=== PATIENT | female | born 1995 | race Caucasian/White ===

== ENCOUNTER 2021-09-12 18:05 | Inpatient (IN) | payer OTHER ==
[~2021-09-12] VITALS: Ht 170.2 cm; Wt 54.9 kg
[2021-09-12 17:35] VITALS: BP 117/75
[2021-09-12] MEDS ORDERED: ONDANSETRON PF 4 MG/2 ML VIAL. IVP PRN (18:45)
[2021-09-12 19:00] VITALS: BP 120/72
[2021-09-12] MEDS ORDERED: LURA20TA PO (19:29)
[2021-09-12] MEDS: fentaNYL PF VIAL 100 MCG/2 ML VIAL IVP PRN (19:52)
[2021-09-12] MEDS: IV DEXTROSE 5 %-0.45 % NACL 1,000 ML IV SCH (21:01)
[2021-09-12 22:51] VITALS: BP 117/64
[2021-09-13] VITALS (11 sets, daily range): BP systolic 100–121; BP diastolic 58–72
[2021-09-13] MEDS: fentaNYL PF VIAL 100 MCG/2 ML VIAL IVP PRN ×6 (03:07→23:43)
[2021-09-13] MEDS: IV DEXTROSE 5 %-0.45 % NACL 1,000 ML IV SCH ×2 (05:00→15:00)
[2021-09-13] MEDS ORDERED: CIPROFLOXACIN 400MG PREMIX 200 ML IV SCH (05:00)
[2021-09-13 05:28] LABS: BASO % 0 % (0-3); EOS # 0.1 x10^3/uL (0.0-0.7); EOS % 2 % (0-3); HEMATOCRIT 32.8 % (36.0-47.0); HEMOGLOBIN 10.1 g/dL (12.0-15.5); LYMPH % 36 % (24-48); MEAN CORPUSCULAR HEMOGLOBIN 24 pg (25-35); MEAN CORPUSCULAR HGB CONC 31 g/dL (31-37); MEAN CORPUSCULAR VOLUME 77 fL (79-100); MONO # 0.6 x10^3/uL (0.0-1.1); MONO % 11 % (0-9); NEUT # 2.7 x10^3/uL (1.8-7.7); NEUT % 50 % (31-73); PLATELET COUNT 160 x10^3/uL (140-400); RED BLOOD COUNT 4.27 x10^6/uL (3.50-5.40); RED CELL DISTRIBUTION WIDTH 16.5 % (11.5-14.5); WHITE BLOOD COUNT 5.4 x10^3/uL (4.0-11.0)
[2021-09-13 05:34] LABS: PROTHROMBIN TIME PATIENT 13.5 SEC (11.7-14.0)
[2021-09-13 06:02] LABS: ALBUMIN 2.4 g/dL (3.4-5.0); ALBUMIN/GLOBULIN RATIO 0.6 (1.0-1.7); CALCIUM 8.1 mg/dL (8.5-10.1); CREATININE 0.5 mg/dL (0.6-1.0); DIRECT BILIRUBIN 0.3 mg/dL (0.0-0.2); GFR 146.9; POTASSIUM 3.7 mmol/L (3.5-5.1); TOTAL BILIRUBIN 0.6 mg/dL (0.2-1.0); TOTAL PROTEIN 6.2 g/dL (6.4-8.2)
[2021-09-13] MEDS ORDERED: PROPOFOL 10 MG/ML (20ML) VIAL. IV ONE (09:21)
[2021-09-13] MEDS ORDERED: DEXAMETHASONE SOD PHOS 4 MG/ML VIAL ONE (09:21)
[2021-09-13] MEDS ORDERED: ONDANSETRON PF 4 MG/2 ML VIAL. ONE (09:21)
[2021-09-13] MEDS ORDERED: LIDOCAINE 2% PF 5 ML VIAL. ONE (09:21)
[2021-09-13] MEDS ORDERED: fentaNYL PF VIAL 100 MCG/2 ML VIAL ONE ×2 (09:22→10:35)
[2021-09-13] MEDS ORDERED: MIDAZOLAM HCL/PF 2 MG/2 ML VIAL. ONE (09:23)
[2021-09-13] MEDS ORDERED: ROCURONIUM 50 MG/5 ML VIAL. ONE (09:23)
--- NOTE | 2021-09-13 09:44 | PDOC2 ---
CONSULT Date of Consult Date of Consult DATE: 09/13/21 TIME: 09:41 Reason for Consult Reason for Consult: Right upper quadrant abdominal pain Referring Physician Referring Physician: Keshawn Identification/Chief Complaint Chief Complaint Abdominal pain Source Source: Patient History of Present Illness Reason for Visit: 26-year-old female with 24-hour history of right upper quadrant abdominal pain nausea and vomiting. Came to the emergency department further evaluation CT scan shows distended gallbladder with thickened gallbladder wall and pericholecystic fluid consistent with acute cholecystitis. Patient states she had 1 episode of gallbladder issues several years ago. Past Medical History Cardiovascular: No pertinent hx Pulmonary: No pertinent hx GI: No pertinent hx Heme/Onc: No pertinent hx Hepatobiliary: No pertinent hx Psych: No pertinent hx Rheumatologic: No pertinent hx Infectious disease: No pertinent hx ENT: No pertinent hx Renal/: No pertinent hx Endocrine: No pertinent hx Dermatology: No pertinent hx Past Surgical History Past Surgical History: Tubal Ligation Family History Family History: No Significant Social History No ALCOHOL: rare Drugs: None Lives: with Family Current Medications Current Medications Current Medications Fentanyl Citrate (Fentanyl 2ml Vial) 50 mcg PRN Q4HRS PRN IVP PAIN Last administered on 09/13/21at 07:58; Start 09/12/21 at 18:45 Ondansetron HCl (Zofran) 4 mg PRN Q4HRS PRN IVP NAUSEA/VOMITING Last administered on 09/13/21at 07:56; Start 09/12/21 at 18:45 Dextrose/Sodium Chloride 1,000 ml @ 100 mls/hr Q10H IV Last administered on 09/13/21at 05:00; Start 09/12/21 at 19:00 Ciprofloxacin/ Dextrose 200 ml @ 200 mls/hr Q12HR IV Last administered on 09/13/21at 05:00; Start 09/13/21 at 05:00; Stop 09/13/21 at 05:53; Status DC Metronidazole 100 ml @ 100 mls/hr Q8H IV Last administered on 09/13/21at 00:22; Start 09/13/21 at 01:00 Ciprofloxacin/ Dextrose 200 ml @ 200 mls/hr Q12HR IV ; Start 09/13/21 at 21:00 Active Scripts Active Reported Latuda (Lurasidone Hcl) 20 Mg Tablet 1 Tab PO QHS 30 Days Allergies Allergies: Coded Allergies: Penicillins (Verified Allergy, Intermediate, 09/13/21) nitrofurantoin (Verified Allergy, Intermediate, 09/13/21) ROS General: No: Chills, Night Sweats, Fatigue, Malaise, Appetite, Other PSYCHOLOGICAL ROS: No: Anxiety, Behavioral Disorder, Concentration difficultie, Decreased libido, Depression, Disorientation, Hallucinations, Hostility, Irritablity, Memory difficulties, Mood Swings, Obsessive thoughts, Physical abuse, Sexual abuse, Sleep disturbances, Suicidal ideation, Other Eyes: No Blurry vision, No Decreased vision, No Double vision, No Dry eyes, No Excessive tearing, No Eye Pain, No Itchy Eyes, No Loss of vision, No Photophobia, No Scotomata, No Uses contacts, No Uses glasses, No Other HEENT: No: Heacaches, Visual Changes, Hearing change, Nasal congestion, Nasal discharge, Oral lesions, Sinus pain, Sore Throat, Epistaxis, Sneezing, Snoring, Tinnitus, Vertigo, Vocal changes, Other ALLERGY AND IMMUNOLOGY: No: Hives, Insect Bite Sensitivity, Itchy/Watery Eyes, Nasal Congestion, Post Nasal Drip, Seasonal Allergies, Other Hematological and Lymphatic: No: Bleeding Problems, Blood Clots, Blood Transfusions, Brusing, Night Sweats, Pallor, Swollen Lymph Nodes, Other ENDOCRINE: No: Breast Changes, Galactorrhea, Hair Pattern Changes, Hot Flashes, Malaise/lethargy, Mood Swings, Palpitations, Polydipsia/polyuria, Skin Changes, Temperature Intolerance, Unexpected Weight Changes, Other Respiratory: No: Cough, Hemoptysis, Orthopnea, Pleuritic Pain, Shortness of breath, SOB with excertion, Sputum Changes, Stridor, Tachypnea, Wheezing, Other Cardiovascular: No Chest Pain, No Palpitations, No Orthopnea, No Paroxysmal Noc. Dyspnea, No Edema, No Lt Headedness, No Other Gastrointestinal: Yes Nausea, Yes Vomiting, Yes Abdominal Pain Genitourinary: No Dysuria, No Frequency, No Incontinence, No Hematuria, No Retention, No Discharge, No Urgency, No Pain, No Flank Pain, No Other, No , No , No , No , No , No , No Musculoskeletal: No Gait Disturbance, No Joint Pain, No Joint Stiffness, No Joint Swelling, No Muscle Pain, No Muscular Weakness, No Pain In:, No Swelling In:, No Other Neurological: No Behavorial Changes, No Bowel/Bladder ControlChng, No Confusion, No Dizziness, No Gait Disturbance, No Headaches, No Impaired Coord/balance, No Memory Loss, No Numbness/Tingling, No Seizures, No Speech Problems, No Tremors, No Visual Changes, No Weakness, No Other Skin: No Dry Skin, No Eczema, No Hair Changes, No Lumps, No Mole Changes, No Mottling, No Nail Changes, No Pruritus, No Rash, No Skin Lesion Changes, No Other, No Acne Physical Exam General: Alert, Oriented X3, Cooperative, mild distress HEENT: Atraumatic, PERRLA, EOMI Lungs: Clear to auscultation, Normal air movement Heart: Regular rate, No murmurs Abdomen: Normal bowel sounds, Soft, Other (Tender to palpation right upper quadrant) Extremities: No edema Skin: No significant lesion Neuro: Normal speech Psych/Mental Status: Mental status NL Vitals VITALS Vital Signs Date Time Temp Pulse Resp B/P (MAP) Pulse Ox O2 Delivery O2 Flow Rate FiO2 09/13/21 07:58 18 Room Air 09/13/21 07:00 98.1 52 112/72 (85) 98 98.1 Labs Labs Laboratory Tests Test 09/13/21 04:35 White Blood Count 5.4 x10^3/uL (4.0-11.0) Red Blood Count 4.27 x10^6/uL (3.50-5.40) Hemoglobin 10.1 g/dL (12.0-15.5) Hematocrit 32.8 % (36.0-47.0) Mean Corpuscular Volume 77 fL (79-100) Mean Corpuscular Hemoglobin 24 pg (25-35) Mean Corpuscular Hemoglobin Concent 31 g/dL (31-37) Red Cell Distribution Width 16.5 % (11.5-14.5) Platelet Count 160 x10^3/uL (140-400) Neutrophils (%) (Auto) 50 % (31-73) Lymphocytes (%) (Auto) 36 % (24-48) Monocytes (%) (Auto) 11 % (0-9) Eosinophils (%) (Auto) 2 % (0-3) Basophils (%) (Auto) 0 % (0-3) Neutrophils # (Auto) 2.7 x10^3/uL (1.8-7.7) Lymphocytes # (Auto) 2.0 x10^3/uL (1.0-4.8) Monocytes # (Auto) 0.6 x10^3/uL (0.0-1.1) Eosinophils # (Auto) 0.1 x10^3/uL (0.0-0.7) Basophils # (Auto) 0.0 x10^3/uL (0.0-0.2) Prothrombin Time 13.5 SEC (11.7-14.0) Prothromb Time International Ratio 1.1 (0.8-1.1) Activated Partial Thromboplast Time 37 SEC (24-38) Sodium Level 144 mmol/L (136-145) Potassium Level 3.7 mmol/L (3.5-5.1) Chloride Level 110 mmol/L (98-107) Carbon Dioxide Level 26 mmol/L (21-32) Anion Gap 8 (6-14) Blood Urea Nitrogen 6 mg/dL (7-20) Creatinine 0.5 mg/dL (0.6-1.0) Estimated GFR (Cockcroft-Gault) 146.9 BUN/Creatinine Ratio 12 (6-20) Glucose Level 105 mg/dL (70-99) Calcium Level 8.1 mg/dL (8.5-10.1) Total Bilirubin 0.6 mg/dL (0.2-1.0) Direct Bilirubin 0.3 mg/dL (0.0-0.2) Aspartate Amino Transf (AST/SGOT) 274 U/L (15-37) Alanine Aminotransferase (ALT/SGPT) 700 U/L (14-59) Alkaline Phosphatase 543 U/L (46-116) Ammonia 12 mcmol/L (11-34) Total Protein 6.2 g/dL (6.4-8.2) Albumin 2.4 g/dL (3.4-5.0) Albumin/Globulin Ratio 0.6 (1.0-1.7) Laboratory Tests Test 09/13/21 04:35 White Blood Count 5.4 x10^3/uL (4.0-11.0) Red Blood Count 4.27 x10^6/uL (3.50-5.40) Hemoglobin 10.1 g/dL (12.0-15.5) Hematocrit 32.8 % (36.0-47.0) Mean Corpuscular Volume 77 fL (79-100) Mean Corpuscular Hemoglobin 24 pg (25-35) Mean Corpuscular Hemoglobin Concent 31 g/dL (31-37) Red Cell Distribution Width 16.5 % (11.5-14.5) Platelet Count 160 x10^3/uL (140-400) Neutrophils (%) (Auto) 50 % (31-73) Lymphocytes (%) (Auto) 36 % (24-48) Monocytes (%) (Auto) 11 % (0-9) Eosinophils (%) (Auto) 2 % (0-3) Basophils (%) (Auto) 0 % (0-3) Neutrophils # (Auto) 2.7 x10^3/uL (1.8-7.7) Lymphocytes # (Auto) 2.0 x10^3/uL (1.0-4.8) Monocytes # (Auto) 0.6 x10^3/uL (0.0-1.1) Eosinophils # (Auto) 0.1 x10^3/uL (0.0-0.7) Basophils # (Auto) 0.0 x10^3/uL (0.0-0.2) Prothrombin Time 13.5 SEC (11.7-14.0) Prothromb Time International Ratio 1.1 (0.8-1.1) Activated Partial Thromboplast Time 37 SEC (24-38) Sodium Level 144 mmol/L (136-145) Potassium Level 3.7 mmol/L (3.5-5.1) Chloride Level 110 mmol/L (98-107) Carbon Dioxide Level 26 mmol/L (21-32) Anion Gap 8 (6-14) Blood Urea Nitrogen 6 mg/dL (7-20) Creatinine 0.5 mg/dL (0.6-1.0) Estimated GFR (Cockcroft-Gault) 146.9 BUN/Creatinine Ratio 12 (6-20) Glucose Level 105 mg/dL (70-99) Calcium Level 8.1 mg/dL (8.5-10.1) Total Bilirubin 0.6 mg/dL (0.2-1.0) Direct Bilirubin 0.3 mg/dL (0.0-0.2) Aspartate Amino Transf (AST/SGOT) 274 U/L (15-37) Alanine Aminotransferase (ALT/SGPT) 700 U/L (14-59) Alkaline Phosphatase 543 U/L (46-116) Ammonia 12 mcmol/L (11-34) Total Protein 6.2 g/dL (6.4-8.2) Albumin 2.4 g/dL (3.4-5.0) Albumin/Globulin Ratio 0.6 (1.0-1.7) Assessment/Plan Assessment/Plan Acute cholecystitis plan laparoscopic cholecystectomy FRANCO KENNEY MD September 13, 2021 09:44
[2021-09-13] MEDS ORDERED: SURGICEL HEMOSTAT 4X8 EACH. ONE (10:08)
[2021-09-13] MEDS ORDERED: BUPIVACAINE-EPI 0.25%-1:200000 MPF 30 ML VIAL. ONE (10:08)
[2021-09-13] MEDS ORDERED: NEOSTIGMINE METHYLSULFATE 5 MG/5 ML SYRINGE. ONE (10:19)
[2021-09-13] MEDS ORDERED: KETOROLAC 30 MG/ML VIAL. ONE (10:19)
[2021-09-13] MEDS ORDERED: BUPIVACAINE-EPI 0.25%-1:200000 MPF 30 ML VIAL. INJ ONE (10:27)
--- NOTE | 2021-09-13 10:58 | PDOC4 ---
Operative Note Operative Note Date: September 13, 2021 at 10:55 AM Preoperative diagnosis: Acute cholecystitis Postoperative diagnosis: Same Procedure: Laparoscopic cholecystectomy with fluorescein cholangiography Surgeon: Bladimir Specimen: Gallbladder Dictation: Patient is a 26-year-old female was mated to the hospital with acute cholecystitis. The procedure of laparoscopic cholecystectomy was explained to the patient detail risk-benefit were also discussed including bleeding infection injury to intra-abdominal contents possible necessitating further open operations alternatives to this procedure also discussed with the patient who seemed to understand and gave a verbal written consent to have procedure performed. Patient was taken to the operating room placed in the supine position general anesthesia was initiated once patient was sleeping intubated her abdomen was prepped and draped usual sterile fashion using ChloraPrep. Area just below the umbilicus was injected quarter percent Marcaine with epinephrine incision was made 11 blade scalpel and varies needle was placed within the abdomen creating pneumoperitoneum once this was complete 11 mm port was placed and a 5 mm camera is placed within the abdomen which was inspected no other abnormalities were noted. 5 mm ports placed in the epigastrium and 5 mm ports placed in the right midabdomen a 5 mm port was placed in the right lateral abdomen all under direct visualization. The dome of the gallbladder is grasped retracted cephalad the infundibulum of the gallbladder is grasped tract laterally exposing the triangle adherent tissue the triangle taken down exposing the cystic duct and cystic artery at this point fluorescein cholangiography was performed which showed good dye within the cystic duct down to the common bile duct without any evidence of obstruction. The cystic duct was doubly clipped and transected the cystic artery was clipped and transected the gallbladder was taken off the liver with hook electrocautery placed in Endo Catch bag moving the umbilicus right upper quadrant was irrigated and suctioned dry hemostasis need be appropriate the pneumoperitoneum was reduced all ports were removed the fascial defect at the umbilicus was closed with a [id number] 0 Vicryl suture skin was reapproximated all port sites for subcuticular Monocryl Mastisol Steri-Strips and island dressings were applied. Patient was awakened and extubated in the operating room taken to recovery in stable condition all sponge instrument needle counts listed as correct estimated blood loss 10 mL FRANCO KENNEY MD September 13, 2021 10:58
[2021-09-13] MEDS ORDERED: fentaNYL PF VIAL 100 MCG/2 ML VIAL IVP PRN ×2 (11:00)
[2021-09-13] MEDS ORDERED: IV RINGERS,LACTATED 1000ML 1,000 ML IV SCH (11:00)
[2021-09-13] MEDS ORDERED: HYDROmorphone 2 MG/ML INJ. IVP PRN (11:00)
[2021-09-13] MEDS ORDERED: MORPHINE SULFATE 2 MG/ML INJ. IVP PRN (11:00)
[2021-09-13] MEDS ORDERED: oxyCODONE/APAP 5/325 1 TAB TABLET PO PRN (11:00)
[2021-09-13] MEDS ORDERED: HYDROmorphone 2 MG/ML INJ. ONE (11:11)
[2021-09-13] MEDS ORDERED: PROCHLORPERAZINE 10 MG/2 ML VIAL. ONE (11:12)
[2021-09-13] MEDS: PROCHLORPERAZINE 10 MG/2 ML VIAL. IVP PRN ×2 (11:15→11:30)
[2021-09-13] MEDS: HYDROmorphone 2 MG/ML INJ. IVP PRN ×4 (11:18→11:50)
[2021-09-13] MEDS: KETOROLAC 15 MG/ML VIAL. IVP SCH ×2 (14:16→21:07)
--- NOTE | 2021-09-13 16:09 | NUR ---
SS following for discharge planning. SS reviewed pt chart and discussed with pt RN. Pt is from home with spouse and is currently on room air. Pt on IV Ciprofloxacin. Surgery today. SS will continue to follow for discharge planning.
[2021-09-13] MEDS: oxyCODONE/APAP 5/325 1 TAB TABLET PO PRN (21:06)
[2021-09-13] MEDS: LACTOBACILLUS RHAMNOSUS GG 1 CAPSULE. PO SCH (21:06)
[2021-09-13] MEDS: CIPROFLOXACIN 400MG PREMIX 200 ML IV SCH (21:06)
[2021-09-14] MEDS: IV DEXTROSE 5 %-0.45 % NACL 1,000 ML IV SCH ×2 (01:00→11:00)
[2021-09-14] MEDS: KETOROLAC 15 MG/ML VIAL. IVP SCH ×2 (02:00→08:31)
[2021-09-14] MEDS: fentaNYL PF VIAL 100 MCG/2 ML VIAL IVP PRN (05:43)
[2021-09-14 07:00] VITALS: BP 127/70
[2021-09-14] MEDS ORDERED: OXYC1TAB15 PO (08:06)
--- NOTE | 2021-09-14 08:09 | PDOC ---
SURGICAL PROGRESS NOTE DATE: 09/14/21 TIME: 08:07 Subjective some pain tolerating diet Vital Signs Vital Signs Date Time Temp Pulse Resp B/P (MAP) Pulse Ox O2 Delivery O2 Flow Rate FiO2 09/14/21 07:00 98.2 52 20 127/70 (89) 96 Room Air 98.2 09/13/21 11:39 6.0 I&O Intake and Output 09/14/21 07:00 Intake Total 2700 ml Output Total 10 ml Balance 2690 ml Intake Oral 1200 ml IV Total 1500 ml Output Estimated Blood Loss 10 ml # Voids 2 General: Alert, Oriented X3, Cooperative Abdomen: Soft, Other (lap dressings intact ) Labs Laboratory Tests Test 09/13/21 04:35 White Blood Count 5.4 x10^3/uL (4.0-11.0) Red Blood Count 4.27 x10^6/uL (3.50-5.40) Hemoglobin 10.1 g/dL (12.0-15.5) Hematocrit 32.8 % (36.0-47.0) Mean Corpuscular Volume 77 fL (79-100) Mean Corpuscular Hemoglobin 24 pg (25-35) Mean Corpuscular Hemoglobin Concent 31 g/dL (31-37) Red Cell Distribution Width 16.5 % (11.5-14.5) Platelet Count 160 x10^3/uL (140-400) Neutrophils (%) (Auto) 50 % (31-73) Lymphocytes (%) (Auto) 36 % (24-48) Monocytes (%) (Auto) 11 % (0-9) Eosinophils (%) (Auto) 2 % (0-3) Basophils (%) (Auto) 0 % (0-3) Neutrophils # (Auto) 2.7 x10^3/uL (1.8-7.7) Lymphocytes # (Auto) 2.0 x10^3/uL (1.0-4.8) Monocytes # (Auto) 0.6 x10^3/uL (0.0-1.1) Eosinophils # (Auto) 0.1 x10^3/uL (0.0-0.7) Basophils # (Auto) 0.0 x10^3/uL (0.0-0.2) Prothrombin Time 13.5 SEC (11.7-14.0) Prothromb Time International Ratio 1.1 (0.8-1.1) Activated Partial Thromboplast Time 37 SEC (24-38) Sodium Level 144 mmol/L (136-145) Potassium Level 3.7 mmol/L (3.5-5.1) Chloride Level 110 mmol/L (98-107) Carbon Dioxide Level 26 mmol/L (21-32) Anion Gap 8 (6-14) Blood Urea Nitrogen 6 mg/dL (7-20) Creatinine 0.5 mg/dL (0.6-1.0) Estimated GFR (Cockcroft-Gault) 146.9 BUN/Creatinine Ratio 12 (6-20) Glucose Level 105 mg/dL (70-99) Calcium Level 8.1 mg/dL (8.5-10.1) Total Bilirubin 0.6 mg/dL (0.2-1.0) Direct Bilirubin 0.3 mg/dL (0.0-0.2) Aspartate Amino Transf (AST/SGOT) 274 U/L (15-37) Alanine Aminotransferase (ALT/SGPT) 700 U/L (14-59) Alkaline Phosphatase 543 U/L (46-116) Ammonia 12 mcmol/L (11-34) Total Protein 6.2 g/dL (6.4-8.2) Albumin 2.4 g/dL (3.4-5.0) Albumin/Globulin Ratio 0.6 (1.0-1.7) Problem List s/p sean ok to [place] home Justicifation of Admission Dx: Justifications for Admission: Justification of Admission Dx: Yes SHAYAN GUTIERREZ MEDICAL SOCIOLOGIST September 14, 2021 08:09
[2021-09-14] MEDS: CIPROFLOXACIN 400MG PREMIX 200 ML IV SCH ×2 (08:29→09:00)
[2021-09-14] MEDS: oxyCODONE/APAP 5/325 1 TAB TABLET PO PRN ×2 (08:30→12:50)
[2021-09-14] MEDS: LACTOBACILLUS RHAMNOSUS GG 1 CAPSULE. PO SCH (08:30)
[2021-09-14 11:00] VITALS: BP 124/72
--- NOTE | 2021-09-14 11:02 | DS ---
DATE OF DISCHARGE: 09/14/2021 HOSPITAL COURSE: The patient is a 26-year-old female patient who was seen in the Emergency Room of [facility] with epigastric and upper quadrant pain. Investigation showed that she has acute cholecystitis. She has also abnormal liver enzymes that are probably related to her chronic hepatitis C. She was admitted to [facility] and underwent laparoscopic cholecystectomy successfully. She did very well. When I saw her this morning, she was resting slightly propped up in bed, in no apparent distress. She continued to have some abdominal pain; however, she has eaten her breakfast and tolerated that very well. She was in fact seen by the surgical team and they approved for discharge. PHYSICAL EXAMINATION: GENERAL: When I saw her, she looked well, slightly pale, not jaundiced, cyanosed, no lymphadenopathy, no thyromegaly, no jugular venous distention. No lower limb edema. VITAL SIGNS: Her heart rate was 52, blood pressure is 127/70, temperature was 98.2, respiratory rate 20, and oxygen saturation was 96% on room air. HEAD, EYES, EARS, NOSE, AND THROAT: Normocephalic, atraumatic. NECK: Supple. HEART: Showed normal first and second heart sounds. No gallop, rub or murmur. CHEST: Clear to auscultation, no crepitation or rhonchi. ABDOMEN: Distended, soft, nontender. NEUROLOGIC: She was grossly intact. LABORATORY DATA: Her lab work showed her white cell count was 5.4, hemoglobin 10, hematocrit 33, MCV 77 and platelet count 160,000 with normal manual differential. Her chemistry showed a serum sodium 144, potassium 3.7, chloride 110, bicarbonate 26, anion gap of 8, BUN 6, creatinine 0.5. Estimated GFR was 146 mL per minute. Her glucose 105, calcium was 8.1. Total bilirubin is normal. AST, ALT, alkaline phosphatase are all elevated. Ammonia was 12, total protein 6.2, albumin was 2.4. Her prothrombin time, INR and APTT are all within normal range. DISCHARGE MEDICATIONS: The patient was discharged home to continue on oxycodone/APAP 5/325 one tablet every 4 hours p.r.n. She also was advised to continue on her Latuda 20 mg at bedtime. FINAL DISCHARGE DIAGNOSES: 1. Acute cholecystitis, status post laparoscopic cholecystectomy. 2. Chronic hepatitis C. 3. Chronic liver disease, likely due to chronic hepatitis C, bronchial asthma, polysubstance abuse including heroin, methamphetamine, and marijuana. 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 NAVNEET DR: Helen TID: [id number]
--- NOTE | 2021-09-14 11:42 | NUR ---
did not give the pt her cipro this morning, pt was discharging today, home with self care. Ritchie Marshall RN
[2021-09-14] MEDS ORDERED: metroNIDAZOLE 500 MG TABLET PO SCH (14:00)
--- NOTE | 2021-09-14 17:03 | HP ---
DATE OF SERVICE: 09/14/2021 ADMIT DATE: 09/12/2021 HISTORY OF PRESENT ILLNESS: The patient is a 26-year-old female patient who presented to the Emergency Room of [facility] with a complaint of chest and abdominal pain primarily in the right upper quadrant. She reports relapsing with heroin and fentanyl starting a week prior to arriving to the Emergency Room that has ended on 09/10/2021. She reports that she is diaphoretic, has chills, nausea and severe mid epigastric and right upper quadrant abdominal pain. Her pain was rated about 6/10 and that radiates to her right shoulder and mid scapular region. She also reported taking medication Tylenol; however, did not improve symptoms. She reports leaning forward and changes in position and smoking cigarettes makes pain worse. Reports she last ate cheeseburger approximately 30-60 minutes prior to arrival. She was extensively investigated in the Emergency Room and has had lab work and imaging studies. Her lab work showed that she has normochromic normocytic anemia with normal white cell count and platelets. Her chemistry showed that she had markedly elevated liver enzymes, although her total bilirubin is normal. Her influenza A and B were negative and coronavirus by rapid antigen testing as well as PCR were negative. Had an ultrasound report showed that the liver is somewhat heterogeneous and a mild increased echogenicity. No focal hepatic mass. Biliary tree is normal in caliber. The common bile duct measures 2 cm. There is diffuse gallbladder wall thickening measuring up to 9 mm with trace pericholecystic fluid, positive Padilla sign. No shadowing stones were identified. Right kidney measures 11.2 cm in length without hydronephrosis. Left kidney was imaged, limited visualized portion of the pancreas, aorta, and IVC unremarkable. No significant ascites. The patient was diagnosed with acute cholecystitis and was transferred to [facility] after she was accepted by the general surgeon for cholecystectomy. She was started on antibiotic empirically in the form of ciprofloxacin as well as Flagyl. PAST MEDICAL HISTORY: Significant for bronchial asthma, hepatitis C, polysubstance abuse including heroin, amphetamine and marijuana. She apparently was clean for 7 months and relapsed a week prior to arrival to the Emergency Room and she has also history of anxiety, bipolar disorder, schizophrenia. PAST SURGICAL HISTORY: Significant for tonsillectomy and tubal ligation. ALLERGIES: SHE IS ALLERGIC TO PENICILLIN, NITROFURANTOIN. MEDICATIONS: She is currently on the following medications: She is on albuterol sulfate 1 puff every 4 hours as needed and tizanidine for Zanaflex 2 mg every 8 hours as needed, oxycodone/APAP 5/325 one tablet. She is on Fetzima 20 mg capsule once a day. She is on budesonide 0.5 mg/2 mL by nebulizer twice a day. She is on GoLYTELY solution, constipation. FAMILY HISTORY: Noncontributory. SOCIAL HISTORY: She is , has 3 children. She continues to smoke and she does not drink alcohol; however, she continues to abuse heroin. She is currently unemployed. PHYSICAL EXAMINATION: GENERAL: On arrival to the Emergency Room, she looked well and was clearly in no apparent respiratory distress. She was pale, but not jaundiced, cyanosed or thyromegaly. No jugular venous distention. No lower limb edema. VITAL SIGNS: Her heart rate was 82, blood pressure 131/60, temperature was 98.5, respiratory rate was 18 and oxygen saturation was 99%. HEAD, EYES, EARS, NOSE AND THROAT: Normocephalic, atraumatic. NECK: Supple. HEART: Normal first and second heart sounds. No gallop, rub or murmur. CHEST: Showed central trachea with equal bilateral chest expansion, air entry, vesicular breath sounds. No crepitation or rhonchi. ABDOMEN: Distended with tenderness mostly in the midepigastric and right upper quadrant. Positive Padilla sign. No rebounding or guarding. NEUROLOGIC: She is awake, alert x3 with normal motor and sensory function. Her affect and judgment as well as mood were normal. LABORATORY DATA: Her lab work showed her white cell count to be 6.3, hemoglobin 11.3, hematocrit 37, MCV 80 and platelet count of 154,000 with normal manual differential. Her chemistry showed a serum sodium 142, potassium 4, chloride 108, bicarbonate 24, anion gap of 10, BUN 6, creatinine 0.7. Estimated GFR was 99 mL per minute. Her glucose 128, calcium was 8.6, magnesium 2.2. Total bilirubin 0.8. AST, ALT, alkaline phosphatase were normal. Her CK was 42. Troponin I high sensitivity was 5. Her beta natriuretic peptide was 171. Total protein 6.8, albumin was 2.7, lipase was 56. Her influenza A and B were negative and coronavirus by rapid antigen testing and by PCR were negative. Her chest x-ray showed that the heart size and mediastinal contours are within normal range. Lungs are clear. There is no consolidative infiltrate or pleural effusion or pneumothorax. Her abdominal ultrasound showed diffuse gallbladder wall thickening with trace amount of pericholecystic fluid and positive Padilla sign, acute cholecystitis not excluded. No significant cholelithiasis. Does have mild increased echogenicity and heterogenicity of the liver, nonspecific. Consider fatty infiltration of diffuse hepatocellular disease. ASSESSMENT AND PLAN: The patient was admitted to [facility] with diagnosis of acute cholecystitis. She was kept n.p.o., started on IV fluid, IV pain medication and antiemetic as well as IV ciprofloxacin and metronidazole. I have consulted the surgical team for definitive surgical treatment. NAVNEET/YOLY DR: Helen TID: [id number]
--- NOTE | 2021-09-14 17:46 | NUR ---
pt was discharged home with self care, script was electroically sent to pharm by Keshawn, educated pt on the post Lap Usha instructions. she was wheeled down to the main entrance at 1300 and picked up by a friend. Ritchie Marshall RN
== END 2021-09-14 13:00 | disposition home or self-care (01) | DRG 417 ==
LOC: 5 NORTH 18:05
PROVIDERS: ADMIT Internal Medicine; ATTEND Internal Medicine
PROC: 0FT44ZZ Resection of Gallbladder, Percutaneous Endoscopic Approach (ICD-10-PCS; principal; 2021-09-12)
PROC: BF502Z0 Other Imaging of Bile Ducts using Fluorescing Agent, Intraoperative (ICD-10-PCS; 2021-09-12)
DX: K81.0 Acute cholecystitis (principal); E43 Unspecified severe protein-calorie malnutrition; D64.9 Anemia, unspecified; F11.10 Opioid abuse, uncomplicated; F17.210 Nicotine dependence, cigarettes, uncomplicated; F20.9 Schizophrenia, unspecified; F31.9 Bipolar disorder, unspecified; J45.909 Unspecified asthma, uncomplicated; K82.8 Other specified diseases of gallbladder; Z56.0 Unemployment, unspecified; F41.9 Anxiety disorder, unspecified; Z90.49 Acquired absence of other specified parts of digestive tract; B18.2 Chronic viral hepatitis C
CPT/HCPCS: 36415; 80053; 82140; 82248; 85025; 85610; 85730; 88304; A4657; A4930; J0744; J0780; J1100; J1170; J1885; J2250; J2405; J2704; J2710; J3010; J3490; J7042; J7120; G0378